=== PATIENT | female | born 1955 | race African-American/Black ===

== ENCOUNTER → 2020-07-07 | Outpatient (CLI) | payer OTHER ==
--- NOTE | 2020-07-07 12:49 | RAD ---
EXAM: Pelvis and left hip, 3 views. HISTORY: Pain. Fall. COMPARISON: None. FINDINGS: A frontal view the pelvis and 2 views of the left hip are obtained. There is severe left hi p joint space narrowing with degenerative subchondral sclerosis, subchondral cyst formation, and jada inal osteophytosis. There is cortical irregularity and flattening of the superior articular aspect of the left femoral head. 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 Electronically signed by: Zohra Durbin MD (07/07/2020 12:47 PM) [id number]
== END ==
LOC: RAD 12:02
PROVIDERS: ATTEND Family Medicine
DX: M25.552 Pain in left hip (principal); M81.8 Other osteoporosis without current pathological fracture
CPT/HCPCS: 73502